=== PATIENT | female | born 1970 | race Caucasian/White ===

== ENCOUNTER 2016-12-08 07:45 | Emergency (ER) | payer OTHER ==
[~2016-12-08 07:45] MED LIST: ATEN50TA2 PO; FISH5CAP PO; GLUC15002 PO; HYDR200T3 PO; LEVO100T5 PO; NAPR500T2 PO; OMEP20CA3 PO; TYLE325T5 PO; VITMTA PO
[2016-12-08] MEDS ORDERED: METOCLOPRAMIDE INJ 10MG/2ML VIAL (J2765) As Ordered ONE (08:16)
[2016-12-08] MEDS ORDERED: MORPHINE 4 MG/ML 1ML SYRINGE As Ordered ONE (08:16)
[2016-12-08 08:36] LABS: BASO # 0.1 K/mm3 (0.0-0.2); EOS # 0.1 K/mm3 (0.0-0.50); EOS % 1.7 % (0.0-3.0); LARGE UNSTAINED CELL # 0.1 K/mm3 (0.0-0.4); LARGE UNSTAINED CELL % 1.5 % (0.0-4.0); LYMPH # 1.5 K/mm3 (1.5-4.5); LYMPH % 16.7 % (24.0-44.0); MEAN CORPUSCULAR HEMOGLOBIN 31.1 pg (27.0-33.0); MEAN CORPUSCULAR HGB CONC 33.5 g/dl (32.0-36.5); MEAN CORPUSCULAR VOLUME 92.8 fl (80.0-96.0); MONO # 0.7 K/mm3 (0.0-0.8); MONO % 7.8 % (0.0-5.0); NEUTROPHILS % 71.2 % (36.0-66.0); PLATELET COUNT, AUTOMATED 214 k/mm3 (150-450); RED CELL DISTRIBUTION WIDTH 13.4 % (11.5-14.5); WHITE BLOOD COUNT 8.4 K/mm3 (4.0-10.0)
[2016-12-08 08:53] LABS: CONTROL LINE HCG INT CTR LINE PRESENT
[2016-12-08 09:00] LABS: ALBUMIN 3.6 GM/DL (3.2-5.2); ALBUMIN/GLOBULIN RATIO 1.03 (1.00-1.93); ALKALINE PHOSPHATASE 74 U/L (45-117); ALT/SGPT 22 U/L (12-78); AMYLASE 43 U/L (25-115); ANION GAP 9 MEQ/L (8-16); AST/SGOT 11 U/L (15-37); BILIRUBIN,DIRECT 0.1 MG/DL (0.0-0.2); BILIRUBIN,TOTAL 0.5 MG/DL (0.2-1.0); BLOOD UREA NITROGEN 12 MG/DL (7-18); CALCIUM LEVEL 8.2 MG/DL (8.5-10.1); CARBON DIOXIDE LEVEL 26 MEQ/L (21-32); CHLORIDE LEVEL 106 MEQ/L (98-107); CREATININE FOR GFR 0.56 MG/DL (0.55-1.02); GLOMERULAR FILTRATION RATE > 60.0 (>58); GLUCOSE, FASTING 99 MG/DL (70-105); SODIUM LEVEL 141 MEQ/L (136-145); TOTAL PROTEIN 7.1 GM/DL (6.4-8.2)
[2016-12-08] MEDS ORDERED: ISOVUE-370 76% 100ML VIAL (Q9967) As Ordered ONE (09:25)
--- NOTE | 2016-12-08 09:31 | REP ---
Abdominal series: Three views. History: Abdominal pain and diarrhea. Right chest radiograph is normal. There is no evidence of infiltrate or free subdiaphragmatic air. Heart is not enlarged. Supine and erect views of the abdomen show air and stool in a nondistended colon. Bowel gas pattern is unremarkable. A vaginal tampon is noted in place. Umbilical jewelry is seen on one of the films. Flank stripes and psoas margins are intact. No mass, organomegaly or pathologic calcification is seen. Impression: Unremarkable abdominal series. Signed by Santana Quintanilla MD 12/08/2016 10:38 A
--- NOTE | 2016-12-08 10:26 | REP ---
CT abdomen and pelvis with IV contrast but without bowel contrast: Comparisons 10/07/2016. There are diverticula in the descending colon and sigmoid colon. There is pericolonic inflammation adjacent to the distal descending colon and proximal sigmoid colon compatible with diverticulitis. There is no focal fluid collection to suggest abscess or perforation. There is no pneumoperitoneum or ascites. The visualized lung erickson are unremarkable. There are bilateral breast implants. This is unchanged. The hepatic parenchyma, gallbladder, pancreas and spleen are unremarkable. The adrenals, kidneys and abdominal aorta, bowel and mesentery are otherwise unremarkable. Pelvis: The uterus, adnexa and urinary bladder are unremarkable. There is no adenopathy or ascites. Impression: Focal diverticulitis of the distal descending colon and proximal sigmoid colon without evidence of focal fluid collection. No pneumoperitoneum or ascites. Findings are similar to the comparison study of 10/07/2016. Signed by Doc Tello MD 12/08/2016 10:16 A
--- NOTE | 2016-12-08 12:32 | EDDOCDS ---
Physician Documentation [facility] Name: Landy Urrutia Age: 46 yrs Sex: Female : 1970 Arrival Date: 12/08/2016 Time: 07:45 Bed TR8 Private MD: Shy Canas FNP-C Disposition: 12/08/16 11:05 Discharged to Home/Self Care. Impression: Diverticulitis of intestine, part unspecified, without perforation or abscess without bleeding. - Condition is Stable. - Discharge Instructions: Clear Liquid Diet, Diverticulitis, Diverticulitis, [id number]. - Prescriptions for Cipro 500 mg Oral Tablet - take 1 tablet by ORAL route every 12 hours; 20 tablet. Flagyl 500 mg Oral Tablet - take 1 tablet by ORAL route every 6 hours for 10 days; 40 tablet. Percocet 5- 325 mg Oral Tablet - take 1 tablet by ORAL route every 6 hours As needed MDD: 4 tabs; 20 tablet. - Medication Reconciliation, Local Pharmacy Hours form. - Follow up: Loc Solorzano; When: Call to arrange an appointment. Follow up: Shy Canas; When: Call to arrange an appointment. - Problem is new. - Symptoms have improved. Historical: - Allergies: PENICILLINS (Rash); SULFA (SULFONAMIDES) (Rash); - Home Meds: 1. atenolol 50 mg Oral tab 1 tab once daily (Last dose: 12/08/2016 07:00) 2. Levoxyl 100 mcg Oral tab 1 tab once daily (Last dose: 12/08/2016 07:00) 3. Plaquenil 200 mg Oral tab 2 tabs once daily (Last dose: 12/08/2016 07:00) - PMHx: Arthritis; Fibromyalgia; Hypertension; Hypothyroidism; Diverticulitis; - PSHx: ; Breast augmention; - Social history: Smoking status: Patient states was never smoker of tobacco. No barriers to communication noted, The patient speaks fluent Telugu. - Family history: Not pertinent. - : The pt / caregiver states he / she is not on anticoagulants. Home medication list is obtained from the patient. - Exposure Risk Screening:: None identified. 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 3 in. (160.02 cm); Pain 10/10; 11:20 BP 122 / 71; Pulse 68; Resp 18; Temp 98.3(O); Pulse Ox 98% on R/A; Pain 0/10; ml6 07:57 Body Mass Index 25.69 (65.77 kg, 160.02 cm) dw MDM: 08:05 IV Saline Lock ordered. sd1 08:05 NS 0.9% 1000 ml IV at 150 mL/hr continuous ordered. sd1 08:05 morphine 4 mg IVP every 15 minutes; Document pain score/vitals after each dose (Hold if sd1 SBP < 90mmHg) x2 ordered. 08:05 Metoclopramide 10 mg IV at 40 mg/hr once over 15 mins ordered. sd1 08:05 Amylase Ordered. EDMS 08:05 Basic Metabolic Profile Ordered. EDMS 08:05 CBC with Diff Ordered. EDMS 08:05 Lipase Ordered. EDMS 08:05 Liver Profile Ordered. EDMS 08:06 HCG,Serum Qualitative Ordered. EDMS 08:07 Abdomen, Flat\E\Upright,PA Chest Ordered. EDMS 08:42 [facility] Payment Agreement was scanned into [employer] and attached to record. jp5 08:43 Financial registration complete. jp5 08:55 CBC with Diff Reviewed. sd1 08:55 HCG,Serum Qualitative Reviewed. sd1 09:16 CT ABD & PELVIS: IV Contrast Only Ordered. EDMS Administered Medications: 08:15 Drug: NS 0.9% 1000 ml [sodium chloride 0.9 % intravenous solution] Route: IV; Rate: 150 ml6 mL/hr; Site: left forearm; 08:15 Drug: morphine 4 mg [morphine 4 mg/mL intravenous cartridge (1 mL)] Route: IVP; Site: ml6 left forearm; 08:15 Drug: Metoclopramide 10 mg [metoclopramide 5 mg/mL injection solution] Route: IV; Rate: ml6 40 mg/hr; Infused Over: 15 mins; Site: left forearm; Signatures: Dispatcher [employer] EDMS Jyoti Phan MD MD sd1 David, DocYESI jane RN, Matthew RN RN ml6 Gisela Driscoll jp5 The chart was reviewed and I authenticate all verbal orders and agree with the evaluation and treatment provided.Attachments: 08:42 [facility] Payment Agreement jp5 MTDD
--- NOTE | 2016-12-08 12:32 | EDDOCDS ---
Nurse's Notes [facility] Name: Landy Urrutia Age: 46 yrs Sex: Female : 1970 Arrival Date: 12/08/2016 Time: 07:45 Bed TR8 Private MD: Shy Canas FNP-C Diagnosis: Diverticulitis of intestine, part unspecified, without perforation or abscess without bleeding Presentation: 12/08 07:53 Presenting complaint: Patient states: Awoke at 2am with LUQ pain, also having nausea dwg and diarrhea since. Risk factors: the patient reports Menses started this AM. Adult Sepsis Screening: The patient does not have new or worsening altered mentation. Patient's respiratory rate is less than 22. Systolic blood pressure is greater than 100. Patient has a qSOFA score of 0- Negative Sepsis Screen. Suicide/Homicide risk assessment- the patient denies having any suicidal and/or homicidal ideations and does not present with any other emotional, behavioral or mental health complaints. 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 Transition of care: patient was not received from another setting of care. 07:53 Acuity: KRISTINA Level 3 dwg 07:53 Method Of Arrival: Walkin/Carried/Asstd dwg Triage Assessment: 07:57 General: Appears in no apparent distress, uncomfortable. Pain: Pain currently is 10 out dwg of 10 on a pain scale. HIV screening NA for this visit Offered previously. 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 atenolol 50 mg Oral tab 1 tab once daily (Last dose: 12/08/2016 07:00) 2. Levoxyl 100 mcg Oral tab 1 tab once daily (Last dose: 12/08/2016 07:00) 3. Plaquenil 200 mg Oral tab 2 tabs once daily (Last dose: 12/08/2016 07:00) - PMHx: Arthritis; Fibromyalgia; Hypertension; Hypothyroidism; Diverticulitis; - PSHx: ; Breast augmention; - Social history: Smoking status: Patient states was never smoker of tobacco. No barriers to communication noted, The patient speaks fluent Danish. - Family history: Not pertinent. - : The pt / caregiver states he / she is not on anticoagulants. Home medication list is obtained from the patient. - Exposure Risk Screening:: None identified. Screenin:00 Screening information is obtained from the patient. Fall risk: No risks identified. ml6 Assistance ADL's: requires no assistance with activities of daily living. Abuse/DV Screen: The patient / caregiver reports he/she is: not in a situation that causes fear, pain or injury. Nutritional screening: No deficits noted. Advance Directives: Currently, there is no health care proxy. home support is adequate. Assessment: 08:15 General: Appears in no apparent distress, comfortable, Behavior is appropriate for age, ml6 cooperative. Pain: Location: abdomen Pain currently is 6 out of 10 on a pain scale. Pain does not radiate. Quality of pain is described as aching, Pain began 1 day ago Is continuous Alleviated by nothing. Aggravated by increased activity. Cardiovascular: No deficits noted. Capillary refill < 3 seconds is brisk in bilateral fingers toes. Respiratory: No deficits noted. GI: Abdomen is flat, non- distended Bowel sounds present X 4 quads. Abd is soft X 4 quads Abd is tender to palpation X 4 quads. 09:30 Reassessment: Patient appears in no apparent distress at this time. Patient denies pain ml6 at this time. Patient states feeling better. Patient states symptoms have improved. 10:30 Reassessment: Patient appears in no apparent distress at this time. Patient denies pain ml6 at this time. Patient states feeling better. Patient states symptoms have improved. 11:20 General: Appears in no apparent distress, Behavior is appropriate for age, cooperative. ml6 Pain: Denies pain. Neurological: No deficits noted. Level of Consciousness is awake, alert, Oriented to person, place, time, Exchange Underwriting Consultant are equal bilaterally. Cardiovascular: No deficits noted. Capillary refill < 3 seconds is brisk in bilateral fingers toes Heart tones S1 S2 present Edema is absent. Pulses are all present. Rhythm is regular. Respiratory: No deficits noted. Airway is patent Respiratory effort is even, unlabored, Respiratory pattern is regular, symmetrical, Breath sounds are clear bilaterally. GI: No deficits noted. Abdomen is flat, non- distended Bowel sounds present X 4 quads. Abd is soft and non tender X 4 quads. Vital Signs: 07:57 BP 119 / 75; Pulse 77; Resp 20; Temp 98.5(T); Pulse Ox 98% on R/A; Weight 65.77 kg; dwg Height 5 ft. 3 in. (160.02 cm); Pain 10/10; 11:20 BP 122 / 71; Pulse 68; Resp 18; Temp 98.3(O); Pulse Ox 98% on R/A; Pain 0/10; ml6 07:57 Body Mass Index 25.69 (65.77 kg, 160.02 cm) [facility] Vitals: 07:57 Log In Time: December 08, 2016 at 07:43. [facility] ED Course: 07:46 Patient visited by Odalys Degroot Reg. lg 07:46 Shy Canas is Private Physician. lg 07:46 Patient moved to Waiting lg 07:54 Triage Initiated dwg 07:59 Patient moved to 9 dwg 08:00 Jyoti Phan MD is Attending Physician. sd1 08:00 Patient visited by Jyoti Phan MD. sd1 08:34 Patient visited by Justice Delgado RN. ml6 08:34 Inserted peripheral IV: 20gauge IV in left forearm and blood collected. Patient ml6 tolerated the procedure well. No procedures done that require assistance. Labs drawn. (by ED staff). Sent per order to lab. 08:42 [facility] Payment Agreement was scanned into [employer] and attached to record. jp5 09:00 Patient visited by Justice Delgado RN. ml6 09:00 The patient / caregiver is instructed regarding the plan of care and ED course. ml6 09:32 Patient visited by Justice Delgado RN. ml6 09:49 Abdomen, Flat\E\Upright,PA Chest Returned. EDMS 10:02 Patient visited by Justice Delgado RN. ml6 10:34 CT ABD & PELVIS: IV Contrast Only Returned. EDMS 10:42 Patient visited by Rosanne Elizondo RN. jo3 11:04 Loc Solorzano is Referral Physician. sd1 11:04 Shy Canas is Referral Physician. sd1 11:20 Discontinued IV bleeding controlled, pressure dressing applied, No redness/swelling at ml6 site. 11:39 Patient moved to [facility] ml6 Administered Medications: 08:15 Drug: NS 0.9% 1000 ml [sodium chloride 0.9 % intravenous solution] Route: IV; Rate: 150 ml6 mL/hr; Site: left forearm; 08:15 Drug: morphine 4 mg [morphine 4 mg/mL intravenous cartridge (1 mL)] Route: IVP; Site: ml6 left forearm; 08:15 Drug: Metoclopramide 10 mg [metoclopramide 5 mg/mL injection solution] Route: IV; Rate: ml6 40 mg/hr; Infused Over: 15 mins; Site: left forearm; Order Results: Lab Order: Amylase; SPEC12/08/16 08:28 Test: AMYLASE; Value: 43; Range: 25-115; Units: U/L; Status: F Lab Order: Basic Metabolic Profile; SPEC12/08/16 08:28 Test: GLUCOSE, FASTING; Value: 99; Range: 70-105; Units: MG/DL; Status: F Test: BLOOD UREA NITROGEN; Value: 12; Range: 7-18; Units: MG/DL; Status: F Test: CREATININE FOR GFR; Value: 0.56; Range: 0.55-1.02; Units: MG/DL; Status: F Test: SODIUM LEVEL; Range: 136-145; Units: MEQ/L; Status: I Test: POTASSIUM SERUM; Range: 3.5-5.1; Units: MEQ/L; Status: I Test: CHLORIDE LEVEL; Range: 98-107; Units: MEQ/L; Status: I Test: CARBON DIOXIDE LEVEL; Range: 21-32; Units: MEQ/L; Status: I Test: ANION GAP; Range: 8-16; Units: MEQ/L; Status: I Test: CALCIUM LEVEL; Range: 8.5-10.1; Units: MG/DL; Status: I Test: GLOMERULAR FILTRATION RATE; Value: > 60.0; Range: >58; Status: F Test: SODIUM LEVEL; Value: 141; Range: 136-145; Units: MEQ/L; Status: F Test: POTASSIUM SERUM; Value: 4.0; Range: 3.5-5.1; Units: MEQ/L; Status: F Test: CHLORIDE LEVEL; Value: 106; Range: 98-107; Units: MEQ/L; Status: F Test: CARBON DIOXIDE LEVEL; Value: 26; Range: 21-32; Units: MEQ/L; Status: F Test: ANION GAP; Value: 9; Range: 8-16; Units: MEQ/L; Status: F Test: CALCIUM LEVEL; Value: 8.2; Range: 8.5-10.1; Abnormal: Below low normal; Units: MG/DL; Status: F Test Note: ; Units are mL/min/1.73 m2 Chronic Kidney Disease Staging per NKF: Stage I & II GFR >=60 Normal to Mildly Decreased Stage III GFR 30-59 Moderately Decreased Stage IV GFR 15-29 Severely Decreased Stage V GFR <15 Very Little GFR Left ESRD GFR <15 on 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 Lab Order: CBC with Diff; SPEC'M 12/08/16 08:28 Test: WHITE BLOOD COUNT; Value: 8.4; Range: 4.0-10.0; Units: K/mm3; Status: F Test: RED BLOOD COUNT; Value: 4.32; Range: 4.00-5.40; Units: M/mm3; Status: F Test: HEMOGLOBIN; Value: 13.4; Range: 12.0-16.0; Units: g/dl; Status: F Test: HEMATOCRIT; Value: 40.1; Range: 36.0-47.0; Units: %; Status: F Test: MEAN CORPUSCULAR VOLUME; Value: 92.8; Range: 80.0-96.0; Units: fl; Status: F Test: MEAN CORPUSCULAR HEMOGLOBIN; Value: 31.1; Range: 27.0-33.0; Units: pg; Status: F Test: MEAN CORPUSCULAR HGB CONC; Value: 33.5; Range: 32.0-36.5; Units: g/dl; Status: F Test: RED CELL DISTRIBUTION WIDTH; Value: 13.4; Range: 11.5-14.5; Units: %; Status: F Test: PLATELET COUNT, AUTOMATED; Value: 214; Range: 150-450; Units: k/mm3; Status: F Test: NEUTROPHILS %; Value: 71.2; Range: 36.0-66.0; Abnormal: Above high normal; Units: %; Status: F Test: LYMPH %; Value: 16.7; Range: 24.0-44.0; Abnormal: Below low normal; Units: %; Status: F Test: MONO %; Value: 7.8; Range: 0.0-5.0; Abnormal: Above high normal; Units: %; Status: F Test: EOS %; Value: 1.7; Range: 0.0-3.0; Units: %; Status: F Test: BASO %; Value: 1.0; Range: 0.0-1.0; Units: %; Status: F Test: LARGE UNSTAINED CELL %; Value: 1.5; Range: 0.0-4.0; Units: %; Status: F Test: NEUTROPHILS #; Value: 6.0; Range: 1.8-7.7; Units: K/mm3; Status: F Test: LYMPH #; Value: 1.5; Range: 1.5-4.5; Units: K/mm3; Status: F Test: MONO #; Value: 0.7; Range: 0.0-0.8; Units: K/mm3; Status: F Test: EOS #; Value: 0.1; Range: 0.0-0.50; Units: K/mm3; Status: F Test: BASO #; Value: 0.1; Range: 0.0-0.2; Units: K/mm3; Status: F Test: LARGE UNSTAINED CELL #; Value: 0.1; Range: 0.0-0.4; Units: K/mm3; Status: F Lab Order: Lipase; SPEC' 12/08/16 08:28 Test: LIPASE; Value: 89; Range: 73-393; Units: U/L; Status: F Lab Order: Liver Profile; SPEC' 12/08/16 08:28 Test: AST/SGOT; Value: 11; Range: 15-37; Abnormal: Below low normal; Units: U/L; Status: F Test: ALT/SGPT; Value: 22; Range: 12-78; Units: U/L; Status: F Test: ALKALINE PHOSPHATASE; Value: 74; Range: 45-117; Units: U/L; Status: F Test: BILIRUBIN,TOTAL; Value: 0.5; Range: 0.2-1.0; Units: MG/DL; Status: F Test: BILIRUBIN,DIRECT; Value: 0.1; Range: 0.0-0.2; Units: MG/DL; Status: F Test: TOTAL PROTEIN; Value: 7.1; Range: 6.4-8.2; Units: GM/DL; Status: F Test: ALBUMIN; Value: 3.6; Range: 3.2-5.2; Units: GM/DL; Status: F Test: ALBUMIN/GLOBULIN RATIO; Value: 1.03; Range: 1.00-1.93; Status: F Lab Order: HCG,Serum Qualitative; SPEC'M 12/08/16 08:28 Test: HCG, SERUM QUALITATIVE; Value: NEGATIVE; Range: NEGATIVE; Status: F Radiology Order: Abdomen, Flat\E\Upright,PA Chest Test: Abdomen, Flat\E\Upright,PA Chest REASON FOR EXAMINATION: Abdomen Pain; Abdominal series: Three views.; ; History: Abdominal pain and diarrhea.; ; Right chest radiograph is normal. There is no evidence of infiltrate or free; subdiaphragmatic air. Heart is not enlarged.; ; Supine and erect views of the abdomen show air and stool in a nondistended colon.; Bowel gas pattern is unremarkable. A vaginal tampon is noted in place.; Umbilical jewelry is seen on one of the films. Flank stripes and psoas margins; are intact. No mass, organomegaly or pathologic calcification is seen.; ; Impression:; ; Unremarkable abdominal series.; ; ; Signed by; Santana Quintanilla MD 12/08/2016 10:38 A; Radiology Order: CT ABD & PELVIS: IV Contrast Only Test: CT ABD & PELVIS: IV Contrast Only REASON FOR EXAMINATION: Diverticulitis; CT abdomen and pelvis with IV contrast but without bowel contrast:; ; Comparisons 10/07/2016.; ; There are diverticula in the descending colon and sigmoid colon. There is; pericolonic inflammation adjacent to the distal descending colon and proximal; sigmoid colon compatible with diverticulitis. There is no focal fluid collection; to suggest abscess or perforation. There is no pneumoperitoneum or ascites.; ; The visualized lung erickson are unremarkable. There are bilateral breast; implants. This is unchanged.; ; The hepatic parenchyma, gallbladder, pancreas and spleen are unremarkable. The; adrenals, kidneys and abdominal aorta, bowel and mesentery are otherwise; unremarkable.; ; Pelvis:; ; The uterus, adnexa and urinary bladder are unremarkable. There is no adenopathy; or ascites.; ; Impression:; ; Focal diverticulitis of the distal descending colon and proximal sigmoid colon; without evidence of focal fluid collection. No pneumoperitoneum or ascites.; ; Findings are similar to the comparison study of 10/07/2016.; ; ; Signed by; Doc Tello MD 12/08/2016 10:16 A; Outcome: 10:02 CT Study completed. ml6 11:05 Discharge ordered by Provider. sd1 11:20 Discharge Assessment: patient administered narcotics - no. The following High Risk ml6 Discharge criteria are identified: None. Discharged to home ambulatory, with significant other. Condition: improved. Discharge instructions given to patient, Instructed on discharge instructions, follow up and referral plans. medication usage, Demonstrated understanding of instructions, medications, Pt was receptive of discharge instructions/ teaching. Prescriptions given X 1. Property :Personal belongings accompany Pt. 11:20 Patient left the ED. ml6 Signatures: Dispatcher [employer] EDMS Jyoti Phan MD MD sd1 Doc David, RN RN Odalys Zambrano, Facundo [facility] Rosanne ElizondoRN RN Justice Santoyo, RN RN ml6 Gisela Driscoll jp5 Corrections: (The following items were deleted from the chart) 12:31 12:30 Patient left the ED. ml6 ml6 [email or web address]
--- NOTE | 2016-12-10 13:32 | EDDOCDS ---
Physician Documentation [facility] Name: Landy Urrutia Age: 46 yrs Sex: Female : 1970 Arrival Date: 12/08/2016 Time: 07:45 Bed TR8 Private MD: Shy Canas FNP-C Disposition: 12/08/16 11:05 Discharged to Home/Self Care. Impression: Diverticulitis of intestine, part unspecified, without perforation or abscess without bleeding. - Condition is Stable. - Discharge Instructions: Clear Liquid Diet, Diverticulitis, Diverticulitis, [id number]. - Prescriptions for Cipro 500 mg Oral Tablet - take 1 tablet by ORAL route every 12 hours; 20 tablet. Flagyl 500 mg Oral Tablet - take 1 tablet by ORAL route every 6 hours for 10 days; 40 tablet. Percocet 5- 325 mg Oral Tablet - take 1 tablet by ORAL route every 6 hours As needed MDD: 4 tabs; 20 tablet. - Medication Reconciliation, Local Pharmacy Hours form. - Follow up: Loc Solorzano; When: Call to arrange an appointment. Follow up: Shy Canas; When: Call to arrange an appointment. - Problem is new. - Symptoms have improved. Historical: - Allergies: PENICILLINS (Rash); SULFA (SULFONAMIDES) (Rash); - Home Meds: 1. atenolol 50 mg Oral tab 1 tab once daily (Last dose: 12/08/2016 07:00) 2. Levoxyl 100 mcg Oral tab 1 tab once daily (Last dose: 12/08/2016 07:00) 3. Plaquenil 200 mg Oral tab 2 tabs once daily (Last dose: 12/08/2016 07:00) - PMHx: Arthritis; Fibromyalgia; Hypertension; Hypothyroidism; Diverticulitis; - PSHx: ; Breast augmention; - Social history: Smoking status: Patient states was never smoker of tobacco. No barriers to communication noted, The patient speaks fluent Slovenian. - Family history: Not pertinent. - : The pt / caregiver states he / she is not on anticoagulants. Home medication list is obtained from the patient. - Exposure Risk Screening:: None identified. 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 3 in. (160.02 cm); Pain 10/10; 11:20 BP 122 / 71; Pulse 68; Resp 18; Temp 98.3(O); Pulse Ox 98% on R/A; Pain 0/10; ml6 07:57 Body Mass Index 25.69 (65.77 kg, 160.02 cm) dwg MDM: 08:05 IV Saline Lock ordered. sd1 08:05 NS 0.9% 1000 ml IV at 150 mL/hr continuous ordered. sd1 08:05 morphine 4 mg IVP every 15 minutes; Document pain score/vitals after each dose (Hold if sd1 SBP < 90mmHg) x2 ordered. 08:05 Metoclopramide 10 mg IV at 40 mg/hr once over 15 mins ordered. sd1 08:05 Amylase Ordered. EDMS 08:05 Basic Metabolic Profile Ordered. EDMS 08:05 CBC with Diff Ordered. EDMS 08:05 Lipase Ordered. EDMS 08:05 Liver Profile Ordered. EDMS 08:06 HCG,Serum Qualitative Ordered. EDMS 08:07 Abdomen, Flat\E\Upright,PA Chest Ordered. EDMS 08:42 [facility] Payment Agreement was scanned into [employer] and attached to record. jp5 08:43 Financial registration complete. jp5 08:55 CBC with Diff Reviewed. sd1 08:55 HCG,Serum Qualitative Reviewed. sd1 09:16 CT ABD & PELVIS: IV Contrast Only Ordered. EDMS 14:40 T-Sheet-- Draft Copy was scanned into [employer] and attached to record. gb Administered Medications: 08:15 Drug: NS 0.9% 1000 ml [sodium chloride 0.9 % intravenous solution] Route: IV; Rate: 150 ml6 mL/hr; Site: left forearm; 08:15 Drug: morphine 4 mg [morphine 4 mg/mL intravenous cartridge (1 mL)] Route: IVP; Site: ml6 left forearm; 08:15 Drug: Metoclopramide 10 mg [metoclopramide 5 mg/mL injection solution] Route: IV; Rate: ml6 40 mg/hr; Infused Over: 15 mins; Site: left forearm; Signatures: Dispatcher [employer] [facility], Jyoti, MD MD sd1 Doc David, RN RN dwg Mehnaz Carrera, Reg Reg gb Justice Delgado, RN RN ml6 Gisela Driscoll jp5 The chart was reviewed and I authenticate all verbal orders and agree with the evaluation and treatment provided.Attachments: 08:42 [facility] Payment Agreement jp5 14:40 T-Sheet-- Draft Copy gb Chart Complete MTDD
--- NOTE | 2016-12-10 13:32 | EDDOCDS ---
Physician Documentation [facility] Name: Landy Urrutia Age: 46 yrs Sex: Female : 1970 Arrival Date: 12/08/2016 Time: 07:45 Bed TR8 Private MD: Shy Canas FNP-C Disposition: 12/08/16 11:05 Discharged to Home/Self Care. Impression: Diverticulitis of intestine, part unspecified, without perforation or abscess without bleeding. - Condition is Stable. - Discharge Instructions: Clear Liquid Diet, Diverticulitis, Diverticulitis, Cpnl-[id number]. - Prescriptions for Cipro 500 mg Oral Tablet - take 1 tablet by ORAL route every 12 hours; 20 tablet. Flagyl 500 mg Oral Tablet - take 1 tablet by ORAL route every 6 hours for 10 days; 40 tablet. Percocet 5- 325 mg Oral Tablet - take 1 tablet by ORAL route every 6 hours As needed MDD: 4 tabs; 20 tablet. - Medication Reconciliation, Local Pharmacy Hours form. - Follow up: Loc Solorzano; When: Call to arrange an appointment. Follow up: Shy Canas; When: Call to arrange an appointment. - Problem is new. - Symptoms have improved. Historical: - Allergies: PENICILLINS (Rash); SULFA (SULFONAMIDES) (Rash); - Home Meds: 1. atenolol 50 mg Oral tab 1 tab once daily (Last dose: 12/08/2016 07:00) 2. Levoxyl 100 mcg Oral tab 1 tab once daily (Last dose: 12/08/2016 07:00) 3. Plaquenil 200 mg Oral tab 2 tabs once daily (Last dose: 12/08/2016 07:00) - PMHx: Arthritis; Fibromyalgia; Hypertension; Hypothyroidism; Diverticulitis; - PSHx: ; Breast augmention; - Social history: Smoking status: Patient states was never smoker of tobacco. No barriers to communication noted, The patient speaks fluent Uzbek. - Family history: Not pertinent. - : The pt / caregiver states he / she is not on anticoagulants. Home medication list is obtained from the patient. - Exposure Risk Screening:: None identified. 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 3 in. (160.02 cm); Pain 10/10; 11:20 BP 122 / 71; Pulse 68; Resp 18; Temp 98.3(O); Pulse Ox 98% on R/A; Pain 0/10; ml6 07:57 Body Mass Index 25.69 (65.77 kg, 160.02 cm) dwg MDM: 08:05 IV Saline Lock ordered. sd1 08:05 NS 0.9% 1000 ml IV at 150 mL/hr continuous ordered. sd1 08:05 morphine 4 mg IVP every 15 minutes; Document pain score/vitals after each dose (Hold if sd1 SBP < 90mmHg) x2 ordered. 08:05 Metoclopramide 10 mg IV at 40 mg/hr once over 15 mins ordered. sd1 08:05 Amylase Ordered. EDMS 08:05 Basic Metabolic Profile Ordered. EDMS 08:05 CBC with Diff Ordered. EDMS 08:05 Lipase Ordered. EDMS 08:05 Liver Profile Ordered. EDMS 08:06 HCG,Serum Qualitative Ordered. EDMS 08:07 Abdomen, Flat\E\Upright,PA Chest Ordered. EDMS 08:42 [facility] Payment Agreement was scanned into [employer] and attached to record. jp5 08:43 Financial registration complete. jp5 08:55 CBC with Diff Reviewed. sd1 08:55 HCG,Serum Qualitative Reviewed. sd1 09:16 CT ABD & PELVIS: IV Contrast Only Ordered. EDMS 14:40 T-Sheet-- Draft Copy was scanned into [employer] and attached to record. gb Administered Medications: 08:15 Drug: NS 0.9% 1000 ml [sodium chloride 0.9 % intravenous solution] Route: IV; Rate: 150 ml6 mL/hr; Site: left forearm; 08:15 Drug: morphine 4 mg [morphine 4 mg/mL intravenous cartridge (1 mL)] Route: IVP; Site: ml6 left forearm; 08:15 Drug: Metoclopramide 10 mg [metoclopramide 5 mg/mL injection solution] Route: IV; Rate: ml6 40 mg/hr; Infused Over: 15 mins; Site: left forearm; Signatures: Dispatcher [facility]yoti, MD MD sd1 Doc David, RN RN dwg Mehnaz Carrera, Reg Reg gb Justice Delgado, RN RN ml6 Gisela Driscoll jp5 The chart was reviewed and I authenticate all verbal orders and agree with the evaluation and treatment provided.Attachments: 08:42 [facility] Payment Agreement jp5 14:40 T-Sheet-- Draft Copy gb Chart Complete MTDD
--- NOTE | 2016-12-10 13:33 | EDDOCDS ---
Nurse's Notes [facility] Name: Landy Urrutia Age: 46 yrs Sex: Female : 1970 Arrival Date: 12/08/2016 Time: 07:45 Bed TR8 Private MD: Shy Canas FNP-C Diagnosis: Diverticulitis of intestine, part unspecified, without perforation or abscess without bleeding Presentation: 12/08 07:53 Presenting complaint: Patient states: Awoke at 2am with LUQ pain, also having nausea dwg and diarrhea since. Risk factors: the patient reports Menses started this AM. Adult Sepsis Screening: The patient does not have new or worsening altered mentation. Patient's respiratory rate is less than 22. Systolic blood pressure is greater than 100. Patient has a qSOFA score of 0- Negative Sepsis Screen. Suicide/Homicide risk assessment- the patient denies having any suicidal and/or homicidal ideations and does not present with any other emotional, behavioral or mental health complaints. 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 Transition of care: patient was not received from another setting of care. 07:53 Acuity: KRISTINA Level 3 dwg 07:53 Method Of Arrival: Walkin/Carried/Asstd dwg Triage Assessment: 07:57 General: Appears in no apparent distress, uncomfortable. Pain: Pain currently is 10 out dwg of 10 on a pain scale. HIV screening NA for this visit Offered previously. [facility]: 07:57 LMP 12/08/2016 dwg Historical: - Allergies: PENICILLINS (Rash); SULFA (SULFONAMIDES) (Rash); - Home Meds: 1. atenolol 50 mg Oral tab 1 tab once daily (Last dose: 12/08/2016 07:00) 2. Levoxyl 100 mcg Oral tab 1 tab once daily (Last dose: 12/08/2016 07:00) 3. Plaquenil 200 mg Oral tab 2 tabs once daily (Last dose: 12/08/2016 07:00) - PMHx: Arthritis; Fibromyalgia; Hypertension; Hypothyroidism; Diverticulitis; - PSHx: ; Breast augmention; - Social history: Smoking status: Patient states was never smoker of tobacco. No barriers to communication noted, The patient speaks fluent Latvian. - Family history: Not pertinent. - : The pt / caregiver states he / she is not on anticoagulants. Home medication list is obtained from the patient. - Exposure Risk Screening:: None identified. Screenin:00 Screening information is obtained from the patient. Fall risk: No risks identified. ml6 Assistance ADL's: requires no assistance with activities of daily living. Abuse/DV Screen: The patient / caregiver reports he/she is: not in a situation that causes fear, pain or injury. Nutritional screening: No deficits noted. Advance Directives: Currently, there is no health care proxy. home support is adequate. Assessment: 08:15 General: Appears in no apparent distress, comfortable, Behavior is appropriate for age, ml6 cooperative. Pain: Location: abdomen Pain currently is 6 out of 10 on a pain scale. Pain does not radiate. Quality of pain is described as aching, Pain began 1 day ago Is continuous Alleviated by nothing. Aggravated by increased activity. Cardiovascular: No deficits noted. Capillary refill < 3 seconds is brisk in bilateral fingers toes. Respiratory: No deficits noted. GI: Abdomen is flat, non- distended Bowel sounds present X 4 quads. Abd is soft X 4 quads Abd is tender to palpation X 4 quads. 09:30 Reassessment: Patient appears in no apparent distress at this time. Patient denies pain ml6 at this time. Patient states feeling better. Patient states symptoms have improved. 10:30 Reassessment: Patient appears in no apparent distress at this time. Patient denies pain ml6 at this time. Patient states feeling better. Patient states symptoms have improved. 11:20 General: Appears in no apparent distress, Behavior is appropriate for age, cooperative. ml6 Pain: Denies pain. Neurological: No deficits noted. Level of Consciousness is awake, alert, Oriented to person, place, time, Mechanical Design Drafter are equal bilaterally. Cardiovascular: No deficits noted. Capillary refill < 3 seconds is brisk in bilateral fingers toes Heart tones S1 S2 present Edema is absent. Pulses are all present. Rhythm is regular. Respiratory: No deficits noted. Airway is patent Respiratory effort is even, unlabored, Respiratory pattern is regular, symmetrical, Breath sounds are clear bilaterally. GI: No deficits noted. Abdomen is flat, non- distended Bowel sounds present X 4 quads. Abd is soft and non tender X 4 quads. Vital Signs: 07:57 BP 119 / 75; Pulse 77; Resp 20; Temp 98.5(T); Pulse Ox 98% on R/A; Weight 65.77 kg; dwg Height 5 ft. 3 in. (160.02 cm); Pain 10/10; 11:20 BP 122 / 71; Pulse 68; Resp 18; Temp 98.3(O); Pulse Ox 98% on R/A; Pain 0/10; ml6 07:57 Body Mass Index 25.69 (65.77 kg, 160.02 cm) [facility] Vitals: 07:57 Log In Time: December 08, 2016 at 07:43. [facility] ED Course: 07:46 Patient visited by Odalys Degroot Reg. lg 07:46 Shy Canas is Private Physician. lg 07:46 Patient moved to Waiting lg 07:54 Triage Initiated dwg 07:59 Patient moved to 9 dwg 08:00 Jyoti Phan MD is Attending Physician. sd1 08:00 Patient visited by Jyoti Phan MD. sd1 08:34 Patient visited by Justice Delgado RN. ml6 08:34 Inserted peripheral IV: 20gauge IV in left forearm and blood collected. Patient ml6 tolerated the procedure well. No procedures done that require assistance. Labs drawn. (by ED staff). Sent per order to lab. 08:42 [facility] Payment Agreement was scanned into [employer] and attached to record. jp5 09:00 Patient visited by Justice Delgado RN. ml6 09:00 The patient / caregiver is instructed regarding the plan of care and ED course. ml6 09:32 Patient visited by Justice Delgado RN. ml6 09:49 Abdomen, Flat\E\Upright,PA Chest Returned. EDMS 10:02 Patient visited by Justice Delgado RN. ml6 10:34 CT ABD & PELVIS: IV Contrast Only Returned. EDMS 10:42 Patient visited by Rosanne Elizondo RN. jo3 11:04 Loc Solorzano is Referral Physician. sd1 11:04 Shy Canas is Referral Physician. sd1 11:20 Discontinued IV bleeding controlled, pressure dressing applied, No redness/swelling at ml6 site. 11:39 Patient moved to [facility] ml6 14:40 T-Sheet-- Draft Copy was scanned into [employer] and attached to record. gb Administered Medications: 08:15 Drug: NS 0.9% 1000 ml [sodium chloride 0.9 % intravenous solution] Route: IV; Rate: 150 ml6 mL/hr; Site: left forearm; 08:15 Drug: morphine 4 mg [morphine 4 mg/mL intravenous cartridge (1 mL)] Route: IVP; Site: ml6 left forearm; 08:15 Drug: Metoclopramide 10 mg [metoclopramide 5 mg/mL injection solution] Route: IV; Rate: ml6 40 mg/hr; Infused Over: 15 mins; Site: left forearm; Order Results: Lab Order: Amylase; SPEC'M 12/08/16 08:28 Test: AMYLASE; Value: 43; Range: 25-115; Units: U/L; Status: F Lab Order: Basic Metabolic Profile; SPEC'M 12/08/16 08:28 Test: GLUCOSE, FASTING; Value: 99; Range: 70-105; Units: MG/DL; Status: F Test: BLOOD UREA NITROGEN; Value: 12; Range: 7-18; Units: MG/DL; Status: F Test: CREATININE FOR GFR; Value: 0.56; Range: 0.55-1.02; Units: MG/DL; Status: F Test: SODIUM LEVEL; Range: 136-145; Units: MEQ/L; Status: I Test: POTASSIUM SERUM; Range: 3.5-5.1; Units: MEQ/L; Status: I Test: CHLORIDE LEVEL; Range: 98-107; Units: MEQ/L; Status: I Test: CARBON DIOXIDE LEVEL; Range: 21-32; Units: MEQ/L; Status: I Test: ANION GAP; Range: 8-16; Units: MEQ/L; Status: I Test: CALCIUM LEVEL; Range: 8.5-10.1; Units: MG/DL; Status: I Test: GLOMERULAR FILTRATION RATE; Value: > 60.0; Range: >58; Status: F Test: SODIUM LEVEL; Value: 141; Range: 136-145; Units: MEQ/L; Status: F Test: POTASSIUM SERUM; Value: 4.0; Range: 3.5-5.1; Units: MEQ/L; Status: F Test: CHLORIDE LEVEL; Value: 106; Range: 98-107; Units: MEQ/L; Status: F Test: CARBON DIOXIDE LEVEL; Value: 26; Range: 21-32; Units: MEQ/L; Status: F Test: ANION GAP; Value: 9; Range: 8-16; Units: MEQ/L; Status: F Test: CALCIUM LEVEL; Value: 8.2; Range: 8.5-10.1; Abnormal: Below low normal; Units: MG/DL; Status: F Test Note: ; Units are mL/min/1.73 m2 Chronic Kidney Disease Staging per NKF: Stage I & II GFR >=60 Normal to Mildly Decreased Stage III GFR 30-59 Moderately Decreased Stage IV GFR 15-29 Severely Decreased Stage V GFR <15 Very Little GFR Left ESRD GFR <15 on IMMUNOPATHOLOGIST Lab Order: CBC with Diff; SPEC'M 12/08/16 08:28 Test: WHITE BLOOD COUNT; Value: 8.4; Range: 4.0-10.0; Units: K/mm3; Status: F Test: RED BLOOD COUNT; Value: 4.32; Range: 4.00-5.40; Units: M/mm3; Status: F Test: HEMOGLOBIN; Value: 13.4; Range: 12.0-16.0; Units: g/dl; Status: F Test: HEMATOCRIT; Value: 40.1; Range: 36.0-47.0; Units: %; Status: F Test: MEAN CORPUSCULAR VOLUME; Value: 92.8; Range: 80.0-96.0; Units: fl; Status: F Test: MEAN CORPUSCULAR HEMOGLOBIN; Value: 31.1; Range: 27.0-33.0; Units: pg; Status: F Test: MEAN CORPUSCULAR HGB CONC; Value: 33.5; Range: 32.0-36.5; Units: g/dl; Status: F Test: RED CELL DISTRIBUTION WIDTH; Value: 13.4; Range: 11.5-14.5; Units: %; Status: F Test: PLATELET COUNT, AUTOMATED; Value: 214; Range: 150-450; Units: k/mm3; Status: F Test: NEUTROPHILS %; Value: 71.2; Range: 36.0-66.0; Abnormal: Above high normal; Units: %; Status: F Test: LYMPH %; Value: 16.7; Range: 24.0-44.0; Abnormal: Below low normal; Units: %; Status: F Test: MONO %; Value: 7.8; Range: 0.0-5.0; Abnormal: Above high normal; Units: %; Status: F Test: EOS %; Value: 1.7; Range: 0.0-3.0; Units: %; Status: F Test: BASO %; Value: 1.0; Range: 0.0-1.0; Units: %; Status: F Test: LARGE UNSTAINED CELL %; Value: 1.5; Range: 0.0-4.0; Units: %; Status: F Test: NEUTROPHILS #; Value: 6.0; Range: 1.8-7.7; Units: K/mm3; Status: F Test: LYMPH #; Value: 1.5; Range: 1.5-4.5; Units: K/mm3; Status: F Test: MONO #; Value: 0.7; Range: 0.0-0.8; Units: K/mm3; Status: F Test: EOS #; Value: 0.1; Range: 0.0-0.50; Units: K/mm3; Status: F Test: BASO #; Value: 0.1; Range: 0.0-0.2; Units: K/mm3; Status: F Test: LARGE UNSTAINED CELL #; Value: 0.1; Range: 0.0-0.4; Units: K/mm3; Status: F Lab Order: Lipase; SPEC'M 12/08/16 08:28 Test: LIPASE; Value: 89; Range: 73-393; Units: U/L; Status: F Lab Order: Liver Profile; SPEC'M 12/08/16 08:28 Test: AST/SGOT; Value: 11; Range: 15-37; Abnormal: Below low normal; Units: U/L; Status: F Test: ALT/SGPT; Value: 22; Range: 12-78; Units: U/L; Status: F Test: ALKALINE PHOSPHATASE; Value: 74; Range: 45-117; Units: U/L; Status: F Test: BILIRUBIN,TOTAL; Value: 0.5; Range: 0.2-1.0; Units: MG/DL; Status: F Test: BILIRUBIN,DIRECT; Value: 0.1; Range: 0.0-0.2; Units: MG/DL; Status: F Test: TOTAL PROTEIN; Value: 7.1; Range: 6.4-8.2; Units: GM/DL; Status: F Test: ALBUMIN; Value: 3.6; Range: 3.2-5.2; Units: GM/DL; Status: F Test: ALBUMIN/GLOBULIN RATIO; Value: 1.03; Range: 1.00-1.93; Status: F Lab Order: HCG,Serum Qualitative; SPEC'M 12/08/16 08:28 Test: HCG, SERUM QUALITATIVE; Value: NEGATIVE; Range: NEGATIVE; Status: F Radiology Order: Abdomen, Flat\E\Upright,PA Chest Test: Abdomen, Flat\E\Upright,PA Chest REASON FOR EXAMINATION: Abdomen Pain; Abdominal series: Three views.; ; History: Abdominal pain and diarrhea.; ; Right chest radiograph is normal. There is no evidence of infiltrate or free; subdiaphragmatic air. Heart is not enlarged.; ; Supine and erect views of the abdomen show air and stool in a nondistended colon.; Bowel gas pattern is unremarkable. A vaginal tampon is noted in place.; Umbilical jewelry is seen on one of the films. Flank stripes and psoas margins; are intact. No mass, organomegaly or pathologic calcification is seen.; ; Impression:; ; Unremarkable abdominal series.; ; ; Signed by; Santana Quintanilla MD 12/08/2016 10:38 A; Radiology Order: CT ABD & PELVIS: IV Contrast Only Test: CT ABD & PELVIS: IV Contrast Only REASON FOR EXAMINATION: Diverticulitis; CT abdomen and pelvis with IV contrast but without bowel contrast:; ; Comparisons 10/07/2016.; ; There are diverticula in the descending colon and sigmoid colon. There is; pericolonic inflammation adjacent to the distal descending colon and proximal; sigmoid colon compatible with diverticulitis. There is no focal fluid collection; to suggest abscess or perforation. There is no pneumoperitoneum or ascites.; ; The visualized lung erickson are unremarkable. There are bilateral breast; implants. This is unchanged.; ; The hepatic parenchyma, gallbladder, pancreas and spleen are unremarkable. The; adrenals, kidneys and abdominal aorta, bowel and mesentery are otherwise; unremarkable.; ; Pelvis:; ; The uterus, adnexa and urinary bladder are unremarkable. There is no adenopathy; or ascites.; ; Impression:; ; Focal diverticulitis of the distal descending colon and proximal sigmoid colon; without evidence of focal fluid collection. No pneumoperitoneum or ascites.; ; Findings are similar to the comparison study of 10/07/2016.; ; ; Signed by; Doc Tello MD 12/08/2016 10:16 A; Outcome: 10:02 CT Study completed. ml6 11:05 Discharge ordered by Provider. sd1 11:20 Discharge Assessment: patient administered narcotics - no. The following High Risk ml6 Discharge criteria are identified: None. Discharged to home ambulatory, with significant other. Condition: improved. Discharge instructions given to patient, Instructed on discharge instructions, follow up and referral plans. medication usage, Demonstrated understanding of instructions, medications, Pt was receptive of discharge instructions/ teaching. Prescriptions given X 1. Property :Personal belongings accompany Pt. 11:20 Patient left the ED. ml6 Signatures: Dispatcher [employer] EDMS Jyoti Phan MD MD sd1 Doc David, RN RN dwMehnaz Pack, Reg Reg gb Odalys Degroot, Reg Reg lg Rosanne Elizondo RN RN Justice Santoyo, RN RN ml6 Gisela Driscoll jp5 Corrections: (The following items were deleted from the chart) 12:31 12:30 Patient left the ED. ml6 ml6 Chart Complete MTDD
== END 2016-12-08 12:30 | disposition home or self-care (01) ==
LOC: M ED 07:45
DX: K57.92 Diverticulitis of intestine, part unspecified, without perforation or abscess without bleeding (principal); I10 Essential (primary) hypertension; E03.9 Hypothyroidism, unspecified; M19.90 Unspecified osteoarthritis, unspecified site; M79.7 Fibromyalgia; Z87.19 Personal history of other diseases of the digestive system; Z88.0 Allergy status to penicillin; Z88.2 Allergy status to sulfonamides; Z79.899 Other long term (current) drug therapy; Z79.52 Long term (current) use of systemic steroids

== ENCOUNTER → 2016-12-27 | Outpatient (REF) | payer BC, MEDICAID, OTHER, SELFPAY | LOC: M LAB REF 14:00 | PROVIDERS: ATTEND Physician Assistant | DX: R10.9 Unspecified abdominal pain (principal); R19.7 Diarrhea, unspecified ==

== ENCOUNTER → 2017-01-17 | Outpatient (REF) | payer OTHER | LOC: M SFHCLERA 17:51 | PROVIDERS: ATTEND Nurse Practitioner Family | DX: R30.0 Dysuria (principal) ==

== ENCOUNTER → 2017-01-30 | Outpatient (REF) | payer OTHER ==
[2017-01-30 12:11] LABS: MEAN CORPUSCULAR HEMOGLOBIN 32.3 pg (27.0-33.0); MEAN CORPUSCULAR HGB CONC 34.2 g/dl (32.0-36.5); MEAN CORPUSCULAR VOLUME 94.6 fl (80.0-96.0); RED CELL DISTRIBUTION WIDTH 12.5 % (11.5-14.5); WHITE BLOOD COUNT 6.8 K/mm3 (4.0-10.0)
[2017-01-30 12:36] LABS: ALBUMIN 3.7 GM/DL (3.2-5.2); ALBUMIN/GLOBULIN RATIO 1.19 (1.00-1.93); ALKALINE PHOSPHATASE 57 U/L (45-117); ALT/SGPT 19 U/L (12-78); ANION GAP 11 MEQ/L (8-16); AST/SGOT 16 U/L (15-37); BILIRUBIN,TOTAL 0.5 MG/DL (0.2-1.0); BLOOD UREA NITROGEN 11 MG/DL (7-18); CALCIUM LEVEL 8.4 MG/DL (8.5-10.1); CARBON DIOXIDE LEVEL 23 MEQ/L (21-32); CHLORIDE LEVEL 106 MEQ/L (98-107); CREATININE FOR GFR 0.58 MG/DL (0.55-1.02); GLOMERULAR FILTRATION RATE > 60.0 (>58); GLUCOSE, FASTING 80 MG/DL (70-105); POTASSIUM SERUM 3.8 MEQ/L (3.5-5.1); SODIUM LEVEL 140 MEQ/L (136-145); TOTAL PROTEIN 6.8 GM/DL (6.4-8.2)
== END ==
LOC: M SFHCPLAZ 10:04
PROVIDERS: ATTEND Nurse Practitioner Adult Health
DX: Z00.00 Encounter for general adult medical examination without abnormal findings (principal); E03.9 Hypothyroidism, unspecified; E55.9 Vitamin D deficiency, unspecified; R19.7 Diarrhea, unspecified

== ENCOUNTER → 2017-01-31 | Outpatient (REF) | payer OTHER | LOC: M SFHCPLAZ 15:20 | PROVIDERS: ATTEND Nurse Practitioner Adult Health | DX: E03.9 Hypothyroidism, unspecified (principal); R19.7 Diarrhea, unspecified ==

== ENCOUNTER → 2017-02-14 | Outpatient (REF) | payer OTHER ==
[2017-02-14 20:35] LABS: MICROSCOPIC EXAM PERFORMED
[2017-02-14 20:36] LABS: HYALINE CAST, URINE NONE SEEN /lpf (0-1); RBC, URINE 0-1 /hpf (0-3); SQUAMOUS EPITHELIAL CELL URINE LARGE AMOUNT /hpf (SMALL AMT); WBC, URINE 0-1 /hpf (0-3)
[2017-02-14 20:37] LABS: BACTERIA, URINE MOD AMOUNT
== END ==
LOC: M SMT 17:27
PROVIDERS: ATTEND Specialist
DX: N39.0 Urinary tract infection, site not specified (principal)

== ENCOUNTER → 2017-03-03 | Outpatient (REF) | payer OTHER | LOC: M SMT 17:10 | PROVIDERS: ATTEND Urology | DX: N39.0 Urinary tract infection, site not specified (principal) ==